=== PATIENT | female | born 1985 | race Caucasian/White ===

== ENCOUNTER 2024-01-13 20:25 | Observation (INO) | payer BC ==
[~2024-01-13] VITALS: Ht 157.5 cm; Wt 73.5 kg
[2024-01-13 20:37] VITALS: BP 113/64; PULSE 82; RESP 18; TEMP 98
== END 2024-01-13 21:35 | disposition home or self-care (01) ==
LOC: MLD 20:25
PROVIDERS: ADMIT Obstetrics & Gynecology; ATTEND Obstetrics & Gynecology
DX: O36.8120 Decreased fetal movements, second trimester, not applicable or unspecified (principal); Z3A.21 21 weeks gestation of pregnancy
CPT/HCPCS: G0378; G0379